=== PATIENT | male | born 1970 | race Caucasian/White ===

== ENCOUNTER 2016-09-21 18:41 | Emergency (ER) | payer BC ==
[2016-09-21 18:54] VITALS: BP 138/99
--- NOTE | 2016-09-21 19:28 | UC ---
Eye Complaint HPI - HPI Summary HPI Summary: 46 yo male with the sudden onset of blurred vision right eye onset about 4PM couldn't read road signs with his right eye started to improve about 6 pm now vision almost back to normal no eye pain no floaters no [id number] hx of HTN - History of Current Complaint Chief Complaint: UCEye Stated Complaint: SUDDEN ONSET BLURRY VISION Time Seen by Provider: 09/21/16 19:02 Hx Obtained From: Patient Onset/Duration: Sudden Onset, Lasting Days Timing: Constant Severity Initially: Moderate Severity Currently: Mild Pain Intensity: 0 Pain Scale Used: 0-10 Numeric Aggravating Factor(s): Nothing Alleviating Factor(s): Nothing Associated Signs And Symptoms: Positive: Vision Impairment Right - Risk Factors Penetrating Injury Risk Factor: Negative Globe Rupture Risk Factors: Negative Acute Glaucoma Risk Factors: Negative - Allergies/Home Medications Allergies/Adverse Reactions: Allergies Allergy/AdvReac Type Severity Reaction Status Date / Time Penicillins Allergy Intermediate Hives Verified 09/21/16 18:53 Home Medications: Home Medications PARoxetine HCL TAB* [Paxil TAB*] 20 mg PO DAILY 09/21/16 [History Confirmed 02/26] PMH/Surg Hx/FS Hx/Imm Hx Previously Healthy: Yes Cardiovascular History: Hypertension - Surgical History Surgical History: Yes Surgery Procedure, Year, and Place: urethral stricture--few surgeries - Family History Known Family History: Positive: Hypertension Negative: Respiratory Disease - Social History Alcohol Use: Occasionally Substance Use Type: None Smoking Status (MU): Never Smoked Tobacco - Immunization History Most Recent Influenza Vaccination: none Review of Systems Constitutional: Negative Skin: Negative Eyes: Blurred Vision ENT: Negative Respiratory: Negative Cardiovascular: Negative Gastrointestinal: Negative Genitourinary: Negative Motor: Negative Neurovascular: Negative Musculoskeletal: Negative Neurological: Negative Psychological: Negative All Other Systems Reviewed And Are Negative: Yes Physical Exam Triage Information Reviewed: Yes Appearance: Well-Appearing, No Pain Distress, Well-Nourished Vital Signs: Initial Vital Signs Temp 98.4 F 09/21/16 18:49 Pulse 75 09/21/16 18:49 Resp 16 09/21/16 18:49 BP 138/99 09/21/16 18:49 Pulse Ox 97 09/21/16 18:49 Vital Signs Reviewed: Yes Eyes: Positive: Conjunctiva Clear, Other: - eomi/perrl, ? blurred disk on right ENT: Positive: Hearing grossly normal. Negative: Nasal congestion, Nasal drainage, Trismus, Muffled/hoarse voice Neck: Positive: Supple, Nontender, Other: - no bruits Respiratory: Positive: Lungs clear, Normal breath sounds, No respiratory distress, No accessory muscle use Cardiovascular: Positive: RRR, No Murmur Musculoskeletal: Positive: ROM Intact, No Edema Neurological: Positive: Alert, Other: - non focal neurologic exam Psychological Exam: Normal Skin Exam: Normal Eye Complaint Course/Dx - Course Course Of Treatment: advise transfer to higher level of care. declines EMS. will call someone to drive - Differential Dx/Diagnosis Provider Diagnoses: acute visual changes right eye. hypertension Discharge - Discharge Plan Condition: Stable Disposition: AGAINST MEDICAL ADVICE Referrals: NICOLAS Schwarz [Primary Care Provider] -
== END 2016-09-21 19:31 | disposition left against medical advice (07) ==
LOC: UCCORT 18:41
DX: H53.8 Other visual disturbances (principal)
CPT/HCPCS: 99213; G0463